=== PATIENT | female | born 1985 | race Caucasian/White ===

== ENCOUNTER 2023-07-19 06:47 | Day surgery (SDC) | payer BC ==
[2023-07-19] MEDS ORDERED: Bupivacaine 0.5% 50 ML MDV ONE (06:53)
[2023-07-19 07:12] LABS: HEMATOCRIT 39.9 % (34.3-46.0); HEMOGLOBIN 13.1 g/dL (11.2-15.5); MEAN CORPUSCULAR HEMOGLOBIN 30.2 pg (31.6-35.5); MEAN CORPUSCULAR HGB CONC 32.8 g/dL (31.6-35.5); MEAN CORPUSCULAR VOLUME 91.9 fL (81.4-99.0); RED BLOOD CELL COUNT 4.34 M/uL (3.77-5.24); WHITE BLOOD CELL COUNT,WBC 11.1 K/uL (3.2-11.0)
[2023-07-19] MEDS ORDERED: Indocyanine Green 25 MG SDV IV ONE (07:30)
[2023-07-19] MEDS ORDERED: Sodium Chloride 0.9% 1,000 ML IV SCH (07:30)
[2023-07-19] MEDS ORDERED: Neostigmine Methylsulfate 1 MG/ML 5 ML Syringe ONE (07:31)
[2023-07-19] MEDS ORDERED: Rocuronium 50 MG/5 ML Vial ONE ×2 (07:31→09:26)
[2023-07-19] MEDS ORDERED: Propofol 200 MG/20 ML SDV ONE (07:31)
[2023-07-19] MEDS ORDERED: Dexamethasone 4 MG/ML SDV ONE (07:31)
[2023-07-19] MEDS ORDERED: Glycopyrrolate 0.2 MG/ML 5 ML MDV ONE (07:31)
[2023-07-19] MEDS ORDERED: Ondansetron 4 MG/2 ML SDV ONE (07:31)
[2023-07-19] MEDS ORDERED: Succinylcholine 200 MG/10 ML MDV ONE (07:31)
[2023-07-19] MEDS ORDERED: fentaNYL 250 MCG/5 ML SDV ONE (07:31)
[2023-07-19 07:33] LABS: A/G RATIO 0.8 (1.2-2.2); ALANINE AMINOTRANSFERASE,ALT 19 U/L (12-78); ALBUMIN 3.4 g/dL (3.4-5.0); ALKALINE PHOSPHATASE 86 U/L (46-116); ANION GAP 9.1 mmol/L (5.0-14.0); ASPARTATE AMNIOTRANSFERASE,AST 15 U/L (15-37); BILIRUBIN TOTAL 0.5 mg/dL (0.2-1.0); BLOOD UREA NITROGEN,BUN 9 mg/dL (7-18); CALCIUM 8.5 mg/dL (8.5-10.1); CARBON DIOXIDE,CO2 30 mmol/L (21-32); CHLORIDE,CL 101 mmol/L (100-108); ESTIMATED GFR 74 mL/min (>60); GLUCOSE RANDOM 102 mg/dL (74-106); POTASSIUM,K 3.8 mmol/L (3.6-5.2); PROTEIN TOTAL,TP 7.7 g/dL (6.4-8.2); SODIUM,NA 140 mmol/L (140-148)
[2023-07-19] MEDS ORDERED: metroNIDAZOLE/Normal Saline 500 MG in Premix Bag 1 BAG IV ONE (08:30)
[2023-07-19] MEDS ORDERED: ceFAZolin 2 GM in Premix Bag 1 BAG IV ONE (08:30)
[2023-07-19] MEDS ORDERED: Lidocaine 1% with EPINEPHrine 1:100,000 50 ML MDV ONE (08:45)
[2023-07-19] MEDS ORDERED: Labetalol 20 MG/4 ML Syringe ONE (09:10)
[2023-07-19] MEDS ORDERED: Lactated Ringers 1,000 ML ONE (10:18)
[2023-07-19] MEDS ORDERED: fentaNYL 100 MCG/2 ML SDV ONE (10:22)
[2023-07-19] MEDS ORDERED: hydrOXYzine HCL 100 MG/2 ML SDV IM ONE (10:53)
[2023-07-19] MEDS ORDERED: HYDROmorphone 1 MG/ML Syringe IVPUSH PRN (11:24)
[2023-07-19] MEDS ORDERED: Morphine 2 MG/ML SYRINGE IVPUSH PRN (11:25)
[2023-07-19] MEDS ORDERED: HYDROmorphone 2 MG Tab PO PRN (13:25)
== END 2023-07-19 14:25 | disposition home or self-care (01) ==
LOC: JP.SDS 06:47
PROVIDERS: ATTEND Surgery
DX: K80.12 Calculus of gallbladder with acute and chronic cholecystitis without obstruction (principal); K58.9 Irritable bowel syndrome, unspecified; K21.9 Gastro-esophageal reflux disease without esophagitis; G47.00 Insomnia, unspecified; I10 Essential (primary) hypertension; F33.1 Major depressive disorder, recurrent, moderate; E03.9 Hypothyroidism, unspecified; F41.9 Anxiety disorder, unspecified; G43.019 Migraine without aura, intractable, without status migrainosus; G47.33 Obstructive sleep apnea (adult) (pediatric); E66.01 Morbid (severe) obesity due to excess calories; R73.03 Prediabetes; Z79.899 Other long term (current) drug therapy; Z79.84 Long term (current) use of oral hypoglycemic drugs; Z79.890 Hormone replacement therapy; Z88.5 Allergy status to narcotic agent; Z88.2 Allergy status to sulfonamides; Z88.8 Allergy status to other drugs, medicaments and biological substances; Z87.891 Personal history of nicotine dependence; Z68.44 Body mass index [BMI] 60.0-69.9, adult
CPT/HCPCS: 36415; 47562; 80053; 84703; 85027; 88304; A9270; J0171; J0330; J0690; J1100; J1170; J2405; J2704; J2710; J2795; J3010; J3410; J3490; J7030; J7120